=== PATIENT | female | born 2000 | race Caucasian/White ===

== ENCOUNTER 2020-04-15 16:10 | Emergency (ER) | payer OTHER, MEDICAID, SELFPAY ==
[2020-04-15 16:50] VITALS: BP 118/74; PULSE 99; RESP 17; TEMP 36.5; O2SAT 100
== END 2020-04-15 18:06 | disposition left against medical advice (07) ==
LOC: ANHED 18:29
PROVIDERS: PCP Family Medicine
DX: M54.6 Pain in thoracic spine (principal)
CPT/HCPCS: 99199

== ENCOUNTER 2021-09-03 17:51 | Emergency (ER) | payer OTHER, MEDICAID, SELFPAY ==
[2021-09-03 17:58] VITALS: BP 134/90; PULSE 91; RESP 19; TEMP 36.7; O2SAT 100
[2021-09-03 19:01] LABS: Add Urine Microscopic? YES; Appearance Urine Clear (Clear); Bacteria Urine Trace /hpf; Bilirubin Urine Negative (Negative); Color Urine Yellow (Yellow); Glucose Urine UA Negative (Negative); Ketones Urine Negative (Negative); Leukocyte Esterase Ur 1+ LEU/UL (Negative); Mucus Urine Rare /lpf; Nitrate Urine Negative (Negative); Protein Urine 1+ mg/dL (Negative); Specific Grav Ur 1.023 (1.001-1.035); Squamous Epithelial Cell Urine Moderate /hpf (Few); Urobilinogen Urine Negative mg/dL (<2.0); WBC Urine 31-50 /hpf
[2021-09-03 19:04] LABS: Blood Urine Negative (Negative)
--- NOTE | 2021-09-03 19:09 | ED.ABDPAIN ---
HPI - Abdominal Pain General Chief Complaint: Abdominal Pain Stated Complaint: abd pain, 9 weeks Time Seen by Provider: 09/03/21 18:53 Source: patient Mode of arrival: ambulatory History of Present Illness HPI narrative: Patient is a 21-year-old female, G2, P1 at 9 weeks based on LMP, complaining of right upper quadrant pain, 4 out of 10, sharp, nonradiating accompanied by nausea started 3 days ago. Patient denies any lower abdominal pain, pelvic pain, vaginal bleeding or discharge. Patient states that she is concerned about her gallbladder and not an ectopic . 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 Related Data Home Medications Medication Instructions Recorded Confirmed insulin lispro [Humalog KwikPen 1 unit SUBCUT ONCE 04/15/20 Insulin] lisdexamfetamine [Vyvanse] 10 mg PO DAILY 04/15/20 tizanidine 2 mg PO BID PRN 04/15/20 Allergies Allergy/AdvReac Type Severity Reaction Status Date / Time bee venom protein (honey bee) Allergy Unknown Unknown Verified 04/15/20 16:45 olanzapine Allergy Unknown Unknown Verified 04/15/20 16:45 vinyl ether Allergy Unknown Unknown Verified 04/15/20 16:45 Review of Systems Review of Systems: All systems reviewed & are unremarkable except as noted in HPI and below Constitutional: Constitutional: Denies body ache(s), Denies chills, Denies excessive sweating, Denies fatigue, Denies fever(s), Denies headache(s), Denies lethargy, Denies malaise, Denies weakness and Denies weight loss Eyes: Eyes: Denies blurry vision, Denies change in vision and Denies loss of vision ENT: Denies dizziness, Denies ear discharge, Denies headache(s), Denies lip swelling, Denies epistaxis, Denies nasal congestion, Denies neck pain, Denies throat swelling and Denies tongue swelling Cardiovascular: Cardiovascular: Denies chest pain, Denies chest pain at rest, Denies chest pain with activity, Denies diaphoresis, Denies rapid heart rate, Denies edema, Denies irregular heart rhythm, Denies lightheadedness, Denies palpitations, Denies dyspnea and Denies dyspnea on exertion Respiratory: Respiratory: Denies chest congestion, Denies cough, Denies hemoptysis, Denies dyspnea and Denies dyspnea on exertion Gastrointestinal: Gastrointestinal: Denies melena, Denies hematochezia, Denies diarrhea, Denies vomiting and Denies hematemesis Musculoskeletal: Musculoskeletal: Denies abnormal gait, Denies deformity, Denies joint swelling, Denies limited range of motion, Denies neck pain and Denies numbness Neurologic: Denies Abnormal speech present, Denies abnormal gait, Denies confusion, Denies dizziness, Denies headache(s), Denies focal weakness, Denies loss of vision, Denies numbness, Denies Other visual disturbances, Denies Sensory deficit (Neuro) and Denies weakness Psychiatric: Psychiatric: Denies confusion, Denies depression, Denies auditory hallucinations, Denies homicidal ideation and Denies suicidal ideation Endocrine: Endocrine: Denies cold intolerance, Denies excessive sweating, Denies fatigue, Denies heat intolerance and Denies palpitations Hematologic/Lymphatic: Hematologic/Lymphatic: Denies easy bleeding and Denies easy bruising Allergic/Immunologic: Allergic/Immunologic: Denies lip swelling, Denies throat swelling and Denies tongue swelling PMFSH Social History Social History Smoking status: Never smoker Gender identity (if verbalized by the patient): Female Comments Past medical history: Insulin-dependent diabetes Family history: Diabetes Social history: Non-smoker no EtOH or drug use Exam Const: General: cooperative, healthy appearing, comfortable, no acute distress, well developed, alert and awake; No confusion Orientation/consciousness: oriented to person, oriented to place, oriented to time, patient oriented x3 and No confusion Limitations: no limitations HENMT: Head: normal to inspection, normocephalic and atraumatic Ear
[2021-09-03] MEDS: SODIUM CHLORIDE 0.9% IV 1,000 ML 999 ML IV CONT (19:32)
[2021-09-03 19:42] LABS: Basophils Percent Auto 0.4 % (0.2-1.2); Hematocrit 32.3 % (37.0-47.0); Hemoglobin 10.1 g/dL (12.0-15.0); Immature Granulocyte Absolute 0.03 K/mm3 (0.00-0.031); Immature Granulocyte Percent A 0.4 % (0-0.5); Lymphocytes Absolute Auto 2.56 K/mm3 (0.9-3.2); Lymphocytes Percent Auto 35.5 % (18.3-44.2); Mean Corpuscular HGB Conc 31.3 g/dl (32-36); Mean Corpuscular Hemoglobin 24.2 pg (26-34); Mean Corpuscular Volume 77.3 fl (80-100); Mean Platelet Volume 9.8 fl (7.4-10.4); Monocytes Absolute Auto 0.7 K/mm3 (0.1-0.6); Monocytes Percent Auto 10.1 % (2.6-8.5); Neutrophils Absolute Auto 3.9 K/mm3 (1.3-6.7); Neutrophils Percent Auto 53.6 % (45.5-73.1); Platelet Count Result 308 k/mm3 (150-375); Red Blood Count 4.18 M/mm3 (4.2-5.4); White Blood Count 7.2 K/mm3 (4.5-10.0)
--- NOTE | 2021-09-03 19:56 | PC.NURSE ---
Pt states my blood sugar is low per my dexcom . Pt states it is 65. Ate snack and drink that she had her in purse.
[2021-09-03 20:23] LABS: Alanine Aminotransferase 11 U/L (4-35); Albumin Level 3.4 g/dL (3.5-5.1); Alkaline Phosphatase 27 U/L (38-126); Anion Gap 6 mmol/L (8-16); Aspartate Amino Transferase 24 U/L (14-36); Bilirubin,Total 0.2 mg/dL (0.2-1.3); Blood Urea Nitrogen 8 mg/dL (7-17); Calcium 7.9 mg/dL (8.4-10.2); Carbon Dioxide 18 mmol/L (22-30); Chloride 113 mmol/L (98-107); Estimated CRCL calculation 147 ml/min; Estimated Glomerular Filt Rate > 60; Glucose 44 mg/dL (65-110); Lipase 30 U/L (23-300); Potassium 3.6 mmol/L (3.4-5.0); Sodium 137 mmol/L (137-145)
--- NOTE | 2021-09-03 20:23 | PC.NURSE ---
pt states her continuous glucose measurement is 79 at this time.
--- NOTE | 2021-09-03 20:36 | PC.NURSE ---
Pt given peanut butter and crackers at this time.
[2021-09-03 20:57] LABS: Glucose Point of Care 59 mg/dl (65-105)
[2021-09-03 21:14] VITALS: BP 122/87; PULSE 87; RESP 18; O2SAT 98
--- NOTE | 2021-09-03 21:16 | PC.NURSE ---
Pt given meal, Blood sugar is 60 at this time.
[2021-09-03 21:32] VITALS: BP 128/78; PULSE 77; RESP 18; O2SAT 98
== END 2021-09-03 21:32 | disposition home or self-care (01) ==
PROVIDERS: Family Medicine; Emergency Provider Emergency Medicine; PCP Family Medicine
DX: O26.891 Other specified pregnancy related conditions, first trimester (principal); R10.11 Right upper quadrant pain; O24.311 Unspecified pre-existing diabetes mellitus in pregnancy, first trimester; E11.649 Type 2 diabetes mellitus with hypoglycemia without coma; O23.41 Unspecified infection of urinary tract in pregnancy, first trimester; Z3A.09 9 weeks gestation of pregnancy; Z79.4 Long term (current) use of insulin
CPT/HCPCS: 36415; 80053; 81001; 81025; 82948; 83690; 84702; 85025; 87077; 87086; 87186; 96360; 99283; J7030

== ENCOUNTER 2023-07-13 02:39 | Emergency (ER) | payer OTHER, MEDICAID, SELFPAY ==
--- NOTE | ~2023-07-13 | XR_ITS ---
Portable chest x-ray Comparison: None Clinical History: Cough Findings: Lungs are clear, without focal consolidation or pleural effusion. Cardiomediastinal silho uette is unremarkable. Bones and soft tissues are unremarkable. Impression: Normal chest. Reviewed, dictated and finalized at location . MIXER Impression: Normal chest.
[2023-07-13 02:39] VITALS: BP 126/87; PULSE 96; RESP 20; TEMP 37.1; O2SAT 100
[2023-07-13 02:55] LABS: Glucose Point of Care 51 mg/dl (65-105)
--- NOTE | 2023-07-13 02:56 | ECG_ITS ---
Measurements Intervals [place] Rate: 85 P: 37 DE: 130 QRS: 79 QRSD: 93 T: 29 QT: 382 QTc: 455 Interpretive Statements SINUS RHYTHM INCOMPLETE RIGHT BUNDLE BRANCH BLOCK NONSPECIFIC T-WAVE ABNORMALITY NO PREVIOUS ECG AVAILABLE FOR COMPARISON Electronically Signed On 07-13-2023 13:34:45 [employer] by Brown Mckeon M.D.
[2023-07-13] MEDS: ONDANSETRON INJ 4 MG/2 ML VIAL IV PUSH (03:04)
[2023-07-13] MEDS: DEXTROSE 50% 25 GM/50 ML SYRINGE IV PUSH (03:04)
[2023-07-13] MEDS: SODIUM CHLORIDE 0.9% IV 1,000 ML 999 ML IV CONT ×2 (03:04→05:12)
--- NOTE | 2023-07-13 03:11 | ED.GENADULT ---
HPI - General Adult General Chief complaint: Nausea/Vomiting/Diarrhea Stated complaint: N/V SINCE 0130 Time Seen by Provider: 07/13/23 02:49 History of Present Illness HPI narrative: patient is a 23-year-old female who presents to emergency department with chief complaint of nausea and vomiting. The patient reports she has prior history of diabetes states that she is concerned that she may be in DKA the patient states that her blood sugar was a little high this evening she took some extra insulin and now is having muscle cramps and generalized weakness. The patient states she is also concerned that she may have a UTI Related Data Home Medications Medication Instructions Recorded Confirmed insulin lispro 100 unit/mL 1 unit subcut ONCE 04/15/20 subcutaneous pen (Humalog KwikPen (U-100) Insulin) lisdexamfetamine 10 mg capsule 10 mg PO DAILY 04/15/20 (Vyvanse) tizanidine 2 mg capsule 2 mg PO BID PRN Back Pain 04/15/20 Allergies Allergy/AdvReac Type Severity Reaction Status Date / Time bee venom protein (honey bee) Allergy Unknown Unknown Verified 07/13/23 02:50 olanzapine Allergy Unknown Unknown Verified 07/13/23 02:50 vinyl ether Allergy Unknown Unknown Verified 07/13/23 02:50 Review of Systems Review of Systems: A 10 system review of systems was completed on the patient and is negative except for what is stated in the HPI. Nursing and ancillary documentation was reviewed. [facility] Social History Social History Smoking status: Never smoker Gender identity (if verbalized by the patient): Female Exam Narrative: GENERAL: Well-appearing, well-nourished, and in no acute distress. HEAD: Normocephalic, atraumatic. EYES: PERRLA and EOMI. ENT: Nares clear, no rhinorrhea or epistaxis. Mucous membranes moist. NECK: Supple. CHEST: Clear to auscultation. No respiratory distress. HEART: Regular rate and rhythm. No murmur heard. Normal peripheral pulses. ABDOMEN: Soft, nontender, nondistended, normal active bowel sounds. EXTREMITIES: Normal range of motion. No edema. SKIN: Warm, dry, no rash. NEURO: No focal deficits. Alert and oriented x3. PSYCH: Normal mood and affect. Course Vital Signs Vital signs: Vital Signs Temperature 37.1 C 07/13/23 02:39 Pulse Rate 96 07/13/23 02:39 Respiratory Rate 20 07/13/23 02:39 Blood Pressure 126/87 07/13/23 02:39 Pulse Oximetry 100 07/13/23 02:39 Oxygen Delivery Room Air 07/13/23 02:39 Temperature 37.6 C 07/13/23 04:59 Pulse Rate 78 07/13/23 04:59 Respiratory Rate 12 07/13/23 04:59 Blood Pressure 112/79 07/13/23 04:59 Pulse Oximetry 100 07/13/23 04:59 Oxygen Delivery Room Air 07/13/23 02:39 Medical Decision Making MDM Narrative Medical decision making narrative: Differential diagnosis includes UTI, DKA, hyperglycemia, hypoglycemia, laboratory studies were obtained on the patient showed a white count of 4.0 pH was 7.365 there is no anion gap there was no acidosis there was a negative beta hydroxybutyrate. Urinalysis showed greater than 100 white blood cells in the urine patient was negative for flu RSV and COVID. Chest x-ray showed no focal infiltrate patient received IV fluids received dextrose and was given a gram of Rocephin Vital Signs Vital Signs: Vital Signs Temperature 37.1 C 07/13/23 02:39 Pulse Rate 96 07/13/23 02:39 Respiratory Rate 20 07/13/23 02:39 Blood Pressure 126/87 07/13/23 02:39 Pulse Oximetry 100 07/13/23 02:39 Oxygen Delivery Room Air 07/13/23 02:39 Temperature 37.6 C 07/13/23 04:59 Pulse Rate 78 07/13/23 04:59 Respiratory Rate 12 07/13/23 04:59 Blood Pressure 112/79 07/13/23 04:59 Pulse Oximetry 100 07/13/23 04:59 Oxygen Delivery Room Air 07/13/23 02:39 Lab Data 07/13/23 04:12 07/13/23 04:12 Labs: Lab Results 07/13/23
[2023-07-13 03:28] LABS: Fractional Inspired Oxygen 21 %; HCO3 VBG 11.9 mEq/l (24.0-30.0); PO2 VBG 30.8 mmHg (35.0-45.0); pH VBG 7.365 (7.300-7.400)
[2023-07-13 03:30] LABS: Device ROOM AIR; PCO2 VBG 21.3 mmHg (42.0-48.0)
[2023-07-13 04:08] LABS: Influenza A QL RT-PCR Negative (Negative); Influenza B QL RT-PCR Negative (Negative); RSV RNA, RT-PCR Negative (Negative); SARS-CoV-2 RNA PCR Negative (Negative)
[2023-07-13 04:18] LABS: Basophils Absolute Auto 0.1 K/mm3 (0.0-0.1); Basophils Percent Auto 1.5 % (0.2-1.2); Hematocrit 31.7 % (37.0-47.0); Hemoglobin 9.8 g/dL (12.0-15.0); Immature Granulocyte Absolute 0.01 K/mm3 (0.00-0.031); Immature Granulocyte Percent A 0.3 % (0-0.5); Lymphocytes Absolute Auto 1.33 K/mm3 (0.9-3.2); Lymphocytes Percent Auto 33.3 % (18.3-44.2); Mean Corpuscular HGB Conc 30.9 g/dl (32-36); Mean Corpuscular Hemoglobin 25.7 pg (26-34); Mean Platelet Volume 9.3 fl (7.4-10.4); Monocytes Absolute Auto 0.4 K/mm3 (0.1-0.6); Monocytes Percent Auto 10.3 % (2.6-8.5); Neutrophils Absolute Auto 2.2 K/mm3 (1.3-6.7); Neutrophils Percent Auto 53.6 % (45.5-73.1); Platelet Count Result 318 k/mm3 (150-375); Red Blood Count 3.82 M/mm3 (4.2-5.4); Red Cell Distribution Width 14.8 % (11.5-14.5)
[2023-07-13 04:28] LABS: Lactic Acid Reflex 1.2 mmol/L (0.7-2.0)
[2023-07-13 04:32] LABS: Alanine Aminotransferase 13 U/L (6-35); Albumin Level 3.5 g/dL (3.5-5.1); Alkaline Phosphatase 64 U/L (38-126); Anion Gap 6 mmol/L (8-16); Aspartate Amino Transferase 18 U/L (14-36); Bilirubin,Total 0.3 mg/dL (0.2-1.3); Blood Urea Nitrogen 17 mg/dL (7-17); Carbon Dioxide 22 mmol/L (22-30); Chloride 109 mmol/L (98-107); Estimated CRCL calculation 144 ml/min; Estimated Glomerular Filt Rate > 60; Glucose 165 mg/dL (65-110); Lipase 39 U/L (23-300); Magnesium 1.7 mg/dL (1.6-2.3); Phosphorus 2.9 mg/dL (2.5-4.5); Potassium 3.6 mmol/L (3.4-5.0); Sodium 137 mmol/L (137-145)
[2023-07-13 04:34] LABS: Beta-Hydroxybutyrate/Acetoacetate 0.07 mmol/L (0.02-0.27)
[2023-07-13 04:59] VITALS: BP 112/79; PULSE 78; RESP 12; TEMP 37.6; O2SAT 100
[2023-07-13 05:35] LABS: Glucose Point of Care 136 mg/dl (65-105)
[2023-07-13 05:41] LABS: Appearance Urine Turbid (Clear); Bacteria Urine 4+ /hpf; Bilirubin Urine Negative (Negative); Blood Urine Negative (Negative); Color Urine Yellow (Yellow); Glucose Urine UA 2+ mg/dL (Negative); Ketones Urine Negative (Negative); Leukocyte Esterase Ur 2+ LEU/UL (Negative); Need Manual Microscopic Reviewed; Nitrate Urine Positive (Negative); Non Pathogenic Casts 0-2; Protein Urine 1+ mg/dL (Negative); RBC Urine 0-2 /hpf (0-2); Specific Grav Ur 1.026 (1.001-1.035); Squamous Epithelial Cell Urine Many /hpf (Few); WBC Urine >100 /hpf
[2023-07-13 05:59] LABS: Add Urine Microscopic? YES
[2023-07-13 06:33] VITALS: BP 114/62; PULSE 82; RESP 16; O2SAT 100
== END 2023-07-13 06:34 | disposition home or self-care (01) ==
PROVIDERS: Emergency Provider Emergency Medicine; PCP Family Medicine
DX: N39.0 Urinary tract infection, site not specified (principal); E16.2 Hypoglycemia, unspecified; R11.2 Nausea with vomiting, unspecified; Z20.822 Contact with and (suspected) exposure to COVID-19
CPT/HCPCS: 36415; 71045; 80053; 81001; 81025; 82010; 82803; 82948; 83605; 83690; 83735; 84100; 84145; 85025; 87077; 87086; 87186; 87637; 93005; 96361; 96365; 96375; 99284; J0696; J2405; J7030

== ENCOUNTER 2023-12-21 21:12 | Emergency (ER) | payer OTHER, SELFPAY ==
--- NOTE | ~2023-12-21 | XR_ITS ---
EXAM: XR foot RT min 3V DATE: 12/21/2023 23:56 HISTORY: right foot pain AND SWELLING . COMPARISON: None available. FINDINGS: Normal mineralization. No fracture or dislocation. No lytic or blastic lesion. Joint space s are maintained. No erosion or periosteal change. Soft tissues within normal limits. IMPRESSION: No acute osseous finding in the right foot. Reviewed, dictated and finalized at location K.
[2023-12-21 21:14] VITALS: BP 140/92; PULSE 93; RESP 20; TEMP 36.5; O2SAT 100
--- NOTE | 2023-12-22 01:10 | ED.LOWEXIN ---
HPI - Extremity Injury (Lower) General Chief Complaint: Extremity Injury, Lower Stated Complaint: right foot pain Time Seen by Provider: 12/22/23 00:59 History of Present Illness HPI Narrative: 23-year-old female with history of type 1 diabetes presents to emergency department for right foot pain for 9 days. Patient states the top of her right foot began hurting slowly and has become significantly worse. She saw her PCP 1 week ago and had x-rays done which showed concern for a sprain. She was placed in a boot. Patient states she has been wearing her boot, taking Tylenol and 400 mg of ibuprofen without improvement. She was of to the ED today for ?another opinion?. States she used to see a recoater for her diabetes but has not a while. Denies injury or trauma to the foot. 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 Related Data Home Medications Medication Instructions Recorded Confirmed blood-glucose sensor (Dexcom G6 07/29/23 Sensor device) blood-glucose transmitter (Dexcom 07/29/23 G6 Transmitter device) insulin pump cart,automated,BT 07/29/23 (Omnipod 5 G6 Pods (Gen 5) subcutaneous cartridge) levothyroxine 100 mcg tablet 100 mcg PO DAILY 07/29/23 (Unithroid) lisdexamfetamine 40 mg capsule 40 mg PO DAILY 07/29/23 (Vyvanse) sertraline 50 mg tablet 50 mg PO DAILY 07/29/23 Allergies Allergy/AdvReac Type Severity Reaction Status Date / Time alprazolam Allergy Mild Unknown Verified 08/27/23 11:23 insulin lispro Allergy Mild Itching Verified 08/27/23 11:23 latex Allergy Mild Itching Verified 08/27/23 11:23 bee venom protein (honey bee) Allergy Unknown Unknown Verified 08/27/23 11:23 olanzapine Allergy Unknown Unknown Verified 08/27/23 11:23 vinyl ether Allergy Unknown Unknown Verified 08/27/23 11:23 Review of Systems Review of Systems: CONSTITUTIONAL: Denies fever, chills, or sweats. EYES: Denies visual changes, redness, or discharge. ENT: Denies rhinorrhea, congestion, sore throat, or otalgia. CARDIOVASCULAR: Denies chest pain, palpitations, or edema. RESPIRATORY: Denies cough or dyspnea. GASTROINTESTINAL: Denies abdominal pain, nausea, vomiting, or diarrhea. GENITOURINARY: Denies dysuria or hematuria. SKIN: Denies rash or itching. MUSCULOSKELETAL: See HPI NEUROLOGIC: Denies headache, numbness, or weakness. PSYCHIATRIC: Denies anxiety or depression. [facility] Past Medical History Medical History Hypothyroidism Type 1 diabetes Family History Family History Sibling Hypertension Social History Social History Social History: Caffeine--Soda once in awhile. Drinks Green Tea Smoking status: Never smoker Alcohol intake: current Alcohol use details: mix drink once a week Substance use: never Gender identity (if verbalized by the patient): Female Exam Narrative: GENERAL: Well-appearing, well-nourished, and in no acute distress. HEAD: Normocephalic, atraumatic. NECK: Supple. CHEST: Clear to auscultation. No respiratory distress. HEART: Regular rate and rhythm. No murmur heard. Normal peripheral pulses. EXTREMITIES: LLE: Tenderness over the dorsum of the mid and lateral foot. No erythema or edema, no overlying ecchymosis. Patient able to wiggle toes. No tenderness to ankle. Cap refill less than 2. DP pulse 2 +. Compartments soft SKIN: Warm, dry, no rash. NEURO: No focal deficits. Alert and oriented x3 Course Vital Signs Vital signs: Vital Signs Temperature 97.7 F 12/21/23 21:14 Pulse Rate 93 12/21/23 21:14 Respiratory Rate 20 12/21/23 21:14 Blood Pressure 140/92 H 12/21/23 21:14 Pulse Oximetry 100 12/21/23 21:14 Oxygen Delivery Room Air 12/21/23 21:14 Temperature 97.7 F 12/21/23 21:14 Pulse Rate 93 12/21/23 21:14 Respiratory Rate 20 12/21/23 21:14
--- NOTE | 2023-12-22 01:18 | PC.NURSE ---
Pt left without dc instructions, crutches or being medicated.
== END 2023-12-22 01:32 | disposition home or self-care (01) ==
PROVIDERS: Emergency Provider Physician Assistant; PCP Family Medicine
DX: M79.671 Pain in right foot (principal); E10.8 Type 1 diabetes mellitus with unspecified complications; E03.9 Hypothyroidism, unspecified; Z79.4 Long term (current) use of insulin; Z79.899 Other long term (current) drug therapy
CPT/HCPCS: 73630; 99283